=== PATIENT | female | born 1995 | race African-American/Black ===

== ENCOUNTER 2022-10-27 11:41 | Outpatient (REF) | payer MEDICAID, SELFPAY ==
[2022-10-29 22:54] LABS: TS Negative Control Passed; TS Panel A 0; TS Panel B 0; TS Positive Control Passed; TSpotTB Negative (Negative)
== END 2022-10-27 11:42 | disposition home or self-care (01) ==
LOC: HO.HHCL 11:41
PROVIDERS: Visit Provider General Practice
DX: Z02.1 Encounter for pre-employment examination (principal)
CPT/HCPCS: 36415; 86481